=== PATIENT | male | born 1955 | race Hispanic/Latino ===

== ENCOUNTER 2023-03-11 12:43 | Observation (INO) | payer OTHER ==
--- OUTSIDE RECORDS SUMMARY | 2023-03-11 12:46 | XMS REPORT | Continuity of Care Document ---
:1955 Author Organization [facility] t Address [address] [facility] [address] [place] [address] Care Team Providers Name Role Phone BRADLEY RIVERA Primary Care Physician Unavailable JUDIE POSADAS Attending Clinician Unavailable Judie Posadas MD Attending Clinician Doctor Unassigned, [place] Attending Clinician Unavailable Payers Payer Name Policy Type Policy Number Effective Date Expiration Date S jerry TABOR PLS [id number] 2020 00:00:00 HMO Problems Condition Condition Condition Status Onset Resolution Last Treating Co mments Source Name Details Category Date Date Treatment Clinician Date Hyperlipid Hyperlipid Disease Active 2022-04 U nivers emia, emia, 0-24 ity [place] hyperlipid hyperlipid Br anch emia type emia type Primary Primary Disease Active 2022-04 Univers hypertensi hypertensi 0-24 it y of on on 00:00: [place] 00 Medical Branch PAD PAD Disease Active 2022-04 Univers (periphera (periphera 0-24 it y of l artery l artery 00:00: [place] disease) disease) 00 Medica l Branch Atrial Atrial Disease Active 2022-04 Univers flutter, flutter, 0-24 ity of unspecifie [place] d type 00 Medical [facility] Cigarette Cigarette Disease Active 2022-04 Uni vers smoker smoker 0-24 ity of 00:00: [place] 00 Medical Branch Mastoiditi Mastoiditi Disease Recurre Methodi s s nce 9-27 st 00:00: Hospita 00 l Left Left Disease Recurre Methodi chronic chronic nce 7-10 st serous serous 00:00: Hospita otitis otitis 00 l media media History of History of Disease Active M ethodi acute acute 4 st pancreatit pancreatit 00:00: Ho spita is is 00 l Abscess of Abscess of Disease Active M ethodi groin groin 07-23 st 00:00: Hospita 00 l Abnormal Abnormal Disease Active Metho di EKG EKG 11-21 st 00:00: Hospita 00 l Claudicati Claudicati Disease Active Overview : Methodi on in on in 10-[address] peripheral peripheral 00:00: g of this [facility] vascular vascular 00 note l disease disease might be different from the original. Added automatic ally from request for surgery [id number] Essential Essential Disease Active Met hodi hypertensi hypertensi 10-10 st on on 00:00: Hospita 00 l Tear of Tear of Diagnosis Active Commo n left left Spirit rotator rotator - [facility] cuff, cuff, St unspecifie unspecifie Lorena kes d tear d tear Medical extent extent Center Pain in Pain in Diagnosis Active Commo n joint of joint of Spirit left left - [facility] shoulder shoulder [facility] Adhesive Adhesive Diagnosis Active Com mon capsulitis capsulitis Sp xiomara of left of left - [facility] shoulder shoulder [facility] Allergies, Adverse Reactions, Alerts Allergy Allergy Status Severity Reaction(s) Onset Inactive Treating Comm ents Source Name Type Date Date Clinician NO KNOWN Drug Active Univers ALLERGIE Class ity of S [facility] Social History Social Habit Start Date Stop Date Quantity Comments Source Sexual orientation Method ist Hospital History of tobacco Passive smoker Un iversity of use [facility] Tobacco use and 2023-02-10 2023-02-10 Smokeless Universit y of exposure 00:00:00 00:00:00 tobacco non-user [facility] Alcohol intake 2019-01-17 2019-01-17 Current drinker [facility] 00:00:00 00:00:00 of alcohol Hospital (finding) History of Social 2018-12-08 2018-12-[address] function 00:00:00 00:00:00 Hospital Cigarettes smoked 2017-07-23 2017-07-[address] current (pack per 00:00:00 00:00:00 Hospita l day) - Reported Tobacco Comment 2017-01-22 2017-01-22 1 cig/day [facility] Sex Assigned At [birth year] [facility] 00:[facility] Smoking Status Start Date Stop Date Source Tobacco smoking University [facility] xa consumption unknown Medical Bran Occasional tobacco smoker 2023-02[facility]10 [facility] 2017-07-23 00:00:00 2017-07-23 [facility] 00:[facility]:00 Medications Ordered Filled Start Stop Current Ordering Indication Dosage Frequency Signature Comments Components Source Medication Medication Date Date Medication? Clinician (SIG) Name Name lisinopriL 2022-04 Yes 20mg Take 1 Unive rs 20 mg 0-24 tablet by ity of tablet 14:44: mouth in [place] [address] the Medical morning. Branch metoprolol 2022-04 Yes 50mg Take 1 Unive rs succinate 0-24 tablet by ity o f XL 50 mg 24 14:44: [place] 31 the Medical morning. Branch glimepiride 2022-04 Yes 1mg Take 1 Univ ers 1 mg tablet 0-24 tablet by ity of 14:44: mouth [place] [address] daily with Medical breakfast. Branch metFORMIN 2022-04 Yes 500mg Take 1 Unive rs 500 mg 0-24 tablet by ity of tablet 14:44: mouth in [place] [address] the Medical morning Branch and 1 tablet in the evening. Take with meals. 1x day if not ate pantoprazol 2022-04 Yes 40mg Take 1 Univ ers e 40 mg EC 0-24 tablet by ity of tablet 14:44: mouth in [place] [address] the Medical morning. Branch gemfibroziL 2022-04 Yes 600mg Take 1 Uni vers 600 mg 0-24 tablet by ity of tablet 14:44: mouth in [place] [address] the Medical morning. Branch lisinopriL 2022-04 Yes 20mg Take 1 Unive rs 20 mg 0-24 tablet by ity of tablet 14:44: mouth in [place] [address] the Medical morning. Branch metoprolol 2022-04 Yes 50mg Take 1 Unive rs succinate 0-24 tablet by ity o f XL 50 mg 24 [place] the Medical morning. Branch glimepiride 2022-04 Yes 1mg Take 1 Univ ers 1 mg tablet 0-24 tablet by ity of 14:44: mouth [place] [address] daily with Medical breakfast. Branch metFORMIN 2022-04 Yes 500mg Take 1 Unive rs 500 mg 0-24 tablet by ity of tablet 14:44: mouth in [place] [address] the Medical morning Branch and 1 tablet in the evening. Take with meals. 1x day if not ate pantoprazol 2022-04 Yes 40mg Take 1 Univ ers e 40 mg EC 0-24 tablet by ity of tablet 14:44: mouth in [place] [address] the Medical morning. Branch gemfibroziL 2022-04 Yes 600mg Take 1 Uni vers 600 mg 0-24 tablet by ity of tablet 14:44: mouth in [place] [address] the Medical morning. Branch lisinopriL 2022-04 Yes 20mg Take 1 Unive rs 20 mg 0-24 tablet by ity of tablet 14:44: mouth in [place] [address] the Medical morning. Branch metoprolol 2022-04 Yes 50mg Take 1 Unive rs succinate 0-24 tablet by ity o f XL 50 mg 24 [place] the Medical morning. Branch glimepiride 2022-04 Yes 1mg Take 1 Univ ers 1 mg tablet 0-24 tablet by ity of 14:44: mouth [place] [address] daily with Medical breakfast. Branch metFORMIN 2022-04 Yes 500mg Take 1 Unive rs 500 mg 0-24 tablet by ity of tablet 14:44: mouth in [place] [address] the Medical morning Branch and 1 tablet in the evening. Take with meals. 1x day if not ate pantoprazol 2022-04 Yes 40mg Take 1 Univ ers e 40 mg EC 0-24 tablet by ity of tablet 14:44: mouth in [place] [address] the Medical morning. Branch gemfibroziL 2022-04 Yes 600mg Take 1 Uni vers 600 mg 0-24 tablet by ity of tablet 14:44: mouth in [place] [address] the Medical morning. Branch gemfibrozil 2019-0 Yes 600mg Q.5D Take 600 M ethodi (LOPID) 600 9-[address] MG tablet 13:58: mouth 2 Hospi ta 29 (two) l times a day. gabapentin 2019 Yes 300mg Q.5D Take 300 Me thodi (NEURONTIN) 9-[address] 300 mg 13:58: mouth 2 Hospita capsule 29 (two) l times a day. metFORMIN 20170 Yes 500mg Q.5D Take 500 Met hodi (GLUCOPHAGE 6-[address] ) 500 mg 00:00: mouth 2 Hospit a tablet 00 (two) l times a day. metoprolol 2017 Yes 50mg QD Take 50 mg M ethodi succinate 6-[address] XL 00:00: daily. Hospita (TOPROL-XL) 00 l 50 mg 24 hr tablet glimepiride Yes 2mg Q.5D Take 2 mg M ethodi (AMARYL) 2 6-[address] MG tablet 00:00: (two) Hospita 00 times a l day. lisinopril Yes 20mg QD Take 20 mg M ethodi (PRINIVIL,Z 6-[address] ESTRIL) 20 00:00: daily. Hospi ta mg tablet 00 l Aspir-81 Aspir-81 Yes Kevyn 1 tablet Common Br[place]ley [facility] Metformin Metformin Yes Kevyn TK 1 T PO Common HCl HCl [place] BID [facility] Glimepiride Glimepiride Yes Kevyn TK 1 T PO Common [place] BID [facility] Metoprolol Metoprolol Yes Kevyn TK 1 T PO Common Succinate Succinate Br[place]ley ONCE D Spi rit ER ER QAM. [facility] Gabapentin Gabapentin Yes Kevyn 1 tablet Common [place] [facility] Lisinopril Lisinopril Yes Kevyn TK 1 T PO Common [place] ONCE D. [facility] Gemfibrozil Gemfibrozil Yes Kevyn TK 1 T PO Common [place] BID [facility] Immunizations Ordered Immunization Filled Immunization Date Status Commen ts Source Name Name Influenza High Dose Unknown Completed Unive [facility] Influenza High Dose Unknown Completed Unive [facility] Influenza High [facility]ose Unknown [facility] Vital Signs Vital Name Observation Time Observation Value Comments Source Systolic blood 2023-02-10 19:33:00 127 mm[Hg] Univer sity of pressure [facility] Diastolic blood 2023-02-10 19:33:00 68 mm[Hg] Unive rsity of pressure [facility] Heart rate 2023-02-10 19:33:00 68 /min [facility] Respiratory rate 2023-02-10 19:33:00 19 /min Univ ersity of [facility] Body height 2023-02-10 19:33:00 182.9 cm [facility] Body weight 2023-02-10 19:33:00 90.084 kg [facility] BMI 2023-02-10 19:33:00 26.94 kg/m2 [facility] Oxygen saturation in 2023-02-10 19:33:00 99 /min [facility] Arterial blood by [facility] Pulse oximetry Branch Procedures Procedure Date / Time Performed Performing Clinician [facility] e ASSIGNMENT OF BENEFITS 2023-02-10 18:47:03 Doctor Unassigned, No [facility] Plan of Care Planned Activity Planned Date Details Comments Source Future Scheduled 2023-02-13 Screening for [facility] Test 11:08:20 malignant neoplasm of colon (procedure) [code = 157054482] Future Scheduled 2023-02-13 Screening for [facility] Test 11:08:20 malignant neoplasm of colon (procedure) [code = 879313886] Future Scheduled 2023-02-13 Screening for [facility] Test 11:08:20 malignant neoplasm of colon (procedure) [code = 762574619] Future Scheduled 2023-02-13 COVID-19 VACCINE (#1) [facility] Test 11:08:20 [code = COVID-19 VACCINE (#1)] Future Scheduled 2023-02-13 Screening for [facility] Test 11:08:20 malignant neoplasm of colon (procedure) [code = 534915619] Future Scheduled 2023-02-13 Screening for [facility] Test 11:08:20 malignant neoplasm of colon (procedure) [code = 166466939] Future Scheduled 2023-02-13 SHINGLES VACCINES ([facility] 11:08:20 of 2) [code = SHINGLES VACCINES (1 of 2)] Future Scheduled 2023-02-13 65+ PNEUMOCOCCAL [facility] Test 11:08:20 VACCINE (1 - PCV) [code = 65+ PNEUMOCOCCAL VACCINE (1 - PCV)] Future Scheduled 2023-02-13 INFLUENZA VACCINE (#1) [facility] Test 11:08:20 [code = INFLUENZA VACCINE (#1)] Encounters Start End Encounter Admission Attending Care Care Encounter Source Date/Time Date/Time Type Type Clinicians Facility Department ID 2023-03-19 2023-03-19 Outpatient R CUAUHTEMOC, [facility] [id number] Univers 08:00:00 08:00:00 JUDIE paez o [facility] 2023-03-05 2023-03-05 Outpatient R CUAUHTEMOC, [facility] [id number] Univers 08:00:00 08:00:00 JUDIE marquez [facility] 2023-03-02 2023-03-02 Outpatient R CUAUHTEMOC, [facility] [id number] Univers 08:00:00 08:00:00 JUDIE marquez [facility] 2023-02-23 2023-02-23 Outpatient R CUAUHTEMOC, [facility] [id number] Univers 08:30:00 08:30:00 JUDIE marquez [facility] 2023-02-23 2023-02-23 Telephone [facility] [id number] Univers 00:00:00 00:00:00 Hussainjarod VALENZUELATONYA [id number] [facility] [id number] [id number] In dical NAL [address] [place] [address] 2023-02-10 2023-02-10 Office [facility] [id number] Univers 14:40:00 15:02:52 Visit Hussainjarod CARL [id number] [facility] [id number] [id number] In dical NAL [address] [place] [address] 2023-02-10 2023-02-10 Outpatient R CUAUHTEMOC, [facility] [id number] Univers 14:40:00 15:02:52 JUDIE litobrandi marquez [facility] 2023-02-10 2023-02-10 Orders Doctor NEWBY [id number] Univers 00:00:00 00:00:00 Only Unassigned, SHANI [id number] ity of [place] [facility] [id number] Bishnu as [id number] [place] [id number] Branch 2018-04-27 2018-04-27 Outpatient Sunday Brandt [id number] Common 13:30:00 13:30:00 [facility] 2018-01-11 2018-01-11 Out[facility] [id number] Common 16:18:00 16:18:00 t [facility] 2018-01-11 2018-01-11 Outpatient [facility] [id number] Common 15:00:00 15:00:00 t [facility] 2017-12-28 2017-12-28 Outpatient [facility] [id number] Common 22:23:00 22:23:00 t [facility] 2017-12-22 2017-12-22 Outpatient [facility] [id number] Common 14:59:00 14:59:00 t [facility] 2017-12-17 2017-12-17 Outpatient [facility] [id number] Common 15:00:00 15:00:00 t [facility] Results This patient has no known results.
--- NOTE | 2023-03-11 13:18 | RAD REPORT ---
EXAM DESCRIPTION: CT - Ct Stroke Brain Wo Cont - 03/11/2023 1:07 pm CLINICAL HISTORY: Slurred speech COMPARISON: none TECHNIQUE: Computed axial tomography of the head was obtained. All CT scans are performed using dose optimization technique as appropriate and may include automated exposure control or mA/KV adjustment according to patient size. FINDINGS: An intracranial bleed is not seen . The ventricles are normal in caliber. No extra-axial fluid collection is noted. Small low-density effusion along the right cerebral convexity Fluid within the sinuses/ mastoids is not seen. IMPRESSION: No acute intracranial abnormality is seen. If patient's symptoms persist MRI of the bra in would be recommended Small chronic effusion along the right cerebral convexity Dr Aceves of the emergency room was notified at 1:13 p.m. March 11, 2023
[2023-03-11 13:19] LABS: Absolute Lymphocytes (CBC) 1.4 K/uL (0.7-4.9); Hematocrit 43.7 % (39.6-49.0); MCV 97.4 fL (80-100); MPV 7.7 fL (7.6-11.3); Platelets 167 thou/uL (152-406); RBC Red Blood Cell Count 4.49 M/uL (4.33-5.43)
[2023-03-11 13:25] LABS: Protime INR 1.08
--- NOTE | 2023-03-11 13:35 | RAD REPORT ---
EXAM DESCRIPTION: CTHead angio03/11/2023 1:16 pm CLINICAL HISTORY: Slurred speech COMPARISON: None TECHNIQUE: 100 cc Isovue [address] angiogram of the head was obtained. 3D MIPS reconstruction performed. All CT scans are performed using dose optimization technique as appropriate and may include automated exposure control or mA/KV adjustment according to patient size. FINDINGS: The basilar, anterior cerebral, middle cerebral and posterior cerebral arteries do not dem onstrate a significant abnormality origin posterior cerebral arteries Mild calcified plaque distal internal carotid arteries An aneurysm is not seen A significant stenosis is not noted. No large vessel occlusion IMPRESSION: No significant abnormality is displayed
--- NOTE | 2023-03-11 13:35 | RAD REPORT ---
EXAM DESCRIPTION: Cristobal Angio03/11/2023 1:16 pm CLINICAL HISTORY: Slurred speech COMPARISON: None TECHNIQUE: 100 cc Isovue [address] angiogram of the neck was obtained. 3D MIPS reconstruction performed. All CT scans are performed using dose optimization technique as appropriate and may include automated exposure control or mA/KV adjustment according to patient size. 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 Vertebral arteries unremarkable No dissection is seen. No high-grade stenosis Dolichoectasia of vertebrobasilar artery IMPRESSION: Mild plaque within the carotid and vertebral arteries [place] crieria Mild stenosis 0 to 49 % Moderate stenosis 50-69% Severe stenosis 70-99%
[2023-03-11 13:41] LABS: Magnesium 1.5 mg/dL (1.6-2.4); Potassium 4.5 mEq/L (3.5-5.1); Troponin High Sensitivity 20.1 pg/mL (<58.9)
[2023-03-11] MEDS ORDERED: NA CHLORIDE 0.9% 500 ML ONE (14:08)
[2023-03-11] MEDS ORDERED: MAGNESIUM SULFATE 1 gm IVPB 1 GM/100 ML BAG IV ONE (14:08)
--- NOTE | 2023-03-11 14:14 | RAD REPORT ---
EXAM DESCRIPTION: Brigitte Single View03/11/2023 2:00 pm CLINICAL HISTORY: Hypertension/slurred speech COMPARISON: January 2023 FINDINGS: The lungs appear clear of acute infiltrate. The heart is normal size IMPRESSION: No acute abnormalities displayed
--- NOTE | 2023-03-11 14:35 | ER ---
Nurse's Notes [facility] Name: Too Forrest Age: 67 yrs Sex: Male : 1955 Arrival Date: 03/11/2023 Time: 12:43 Bed 16 Private MD: Diagnosis: Slurred speech;Syncope Presentation: 03/11 12:55 Chief complaint: Patient states: has had slurred speech X 2 days, having issues with iw his blood sugar and blood pressure , states he has fallen multiple times over past 10 days. Coronavirus screen: At this time, the client does not indicate any symptoms associated with coronavirus-19. Ebola Screen: Patient negative for fever greater than or equal to 101.5 degrees Fahrenheit, and additional compatible Ebola Virus Disease symptoms Patient denies exposure to infectious person. Patient denies travel to an Ebola-affected area in the 21 days before illness onset. No symptoms or risks identified at this time. Initial Sepsis Screen: Does the patient meet any 2 criteria? No. Patient's initial sepsis screen is negative. Does the patient have a suspected source of infection? No. Patient's initial sepsis screen is negative. Risk Assessment: Do you want to hurt yourself or someone else? Patient reports no desire to harm self or others. Onset of symptoms was March 09, 2023. 12:55 Method Of Arrival: Wheelchair iw 12:55 Acuity: JARRETT 3 iw 17:22 No acute neurological deficit is noted. Pre-hospital glucose is not applicable to this ko1 patient. Triage Assessment: 17:22 The onset of the patients symptoms was more than six hours ago. General: Appears in no ko1 apparent distress. Behavior is cooperative, appropriate for age, anxious. 17:22 The onset of the patients symptoms was March 09, 2023 at 12:00. ko1 Stroke Activation: Symptom onset > 6 hours Physician: Stroke Attending; Name: ; Notified At: ; Arrived At: Physician: Chief Stroke Resident; Name: ; Notified At: ; Arrived At: Physician: Stroke Resident; Name: ; Notified At: ; Arrived At: Physician: ED Attending; Name: ; Notified At: ; Arrived At: Physician: ED Resident; Name: ; Notified At: ; Arrived At: Historical: - Allergies: 12:57 No Known Allergies; iw - Home Meds: 12:57 gemfibrozil 600 mg Oral tablet 2 times per day [Active]; glimepiride 1 mg Oral tablet 2 iw times per day for Type 2 Diabetes Mellitus [Active]; lisinopril 20 mg Oral tablet once for Hypertension [Active]; metformin 500 mg Oral Tablet 1 tab 2 times per day for Type 2 Diabetes Mellitus [Active]; pantoprazole 40 mg Oral tablet once [Active]; metoprolol tartrate 50 mg Oral tablet daily [Active]; - PMHx: 12:57 diabetes mellitus; Hypertensive disorder; iw - Immunization history:: Adult Immunizations unknown. - Family history:: not pertinent. - Social history:: Smoking status: Patient denies any tobacco usage or history of. - Hospitalizations: : No recent hospitalization is reported. Screenin:09 [place] Swallow Protocol 3 oz Water Swallow Challenge: Pt able to drink all water without cm10 stopping, coughing, choking or throat clearing: Yes Result: PASS. 15:30 [facility] ED Fall Risk Assessment (Adult) History of falling in the last 3 months, ko1 including since admission Yes- fall prone (multiple falls) (3 pts) Confusion or Disorientation Yes (5 pts) Intoxicated or Sedated No (0 pts) Impaired Gait No (0 pts) Mobility Assist Device Used No (0 pt) Altered Elimination No (0 pt) Score/Fall Risk Level 3 or more points = High Risk Oriented to surroundings, Maintained a safe environment, Educated pt \T\ family on fall prevention, incl call for assistance when getting out of bed, Assessed \T\ reinforced patient's understanding of fall precautions, Provided non-skid footwear, Hourly rounding (assess needs \T\ fall precautionary measures) done, Used ambulatory aids as needed (educated on \T\ assisted with), Used gait belt as appropriate Implemented a Fall Risk Plan of Care, Apply high fall risk patient identification: yellow non skid footwear/ fall signage, Placed fall mat w/ non beveled edge next to bed, Activated bed/chair alarm, Remained w/in arm's length of patient and in sight while toileting, Offered frequent toileting (1:1 observation), Remained with patient while ambulating, Utilized family, sitter, or virtual forging press operator as indicated. Abuse screen: Denies threats or abuse. Denies injuries from another. Nutritional screening: No deficits noted. Tuberculosis screening: No symptoms or risk factors identified. Assessment: 13:00 VAN Scoring: Arm Drift: Patients demonstrates NO arm weakness. Patient is VAN Negative. ko1 Visual Disturbance: No visual disturbance noted. Aphasia: No aphasia noted. Neglect: No neglect noted. TNKase (Tenecteplase) Screening: Indications: Contraindications: Patient reports onset of signs and symptoms of stroke greater than 6 hours ago: Yes. Pain: Denies pain. Neuro: Reports confusion and slurred speech. Vital Signs: 12:55 BP 157 / 81; Pulse 59; Resp 16; Temp 98.4; Pulse Ox 100% on R/A; Weight 87.54 kg; iw Height 6 ft. 0 in. ; 14:00 BP 133 / 68; Pulse 119; Resp 16; Pulse Ox 99% ; ko1 14:15 BP 149 / 83; Pulse 103; Resp 16; Pulse Ox 99% ; ko1 15:15 BP 133 / 74; Pulse 96; Resp 18; Pulse Ox 100% ; ko1 15:30 BP 136 / 78; Pulse 106; Resp 16; Pulse Ox 99% ; ko1 17:19 BP 135 / 86; Pulse 70; Resp 16; Pulse Ox 99% ; ko1 12:55 Body Mass Index 26.18 (87.54 kg, 182.88 cm) iw NIH Stroke Scale Scores: 13:00 NIHSS Score: 1 ko1 ED Course: 12:44 Patient arrived in ED. mr 12:48 Alejandro Aceves MD is Attending Physician. rn 12:57 Triage completed. iw 12:58 Arm band placed on. iw 12:59 Halley Wright, JUANPABLO is Primary Nurse. ko1 13:00 Client placed on continuous cardiac and pulse oximetry monitoring. NIBP monitoring ko1 applied. nuclear monitoring technician on. Door closed. Noise minimized. Lights dimmed. Warm blanket given. 13:00 Inserted saline lock: 20 gauge in right antecubital area, using aseptic technique. ko1 Blood collected. 13:09 CT Stroke Brain w/o Contrast In Process Unspecified. EDMS 13:18 CT Head Angio In Process Unspecified. EDMS 13:18 CT Neck Angio In Process Unspecified. EDMS 14:02 Stroke CXR 1 View In Process Unspecified. EDMS 14:34 Alejandro Aceves MD is Hospitalizing Provider. rn 15:01 MRI - Brain Wo Cont In Process Unspecified. EDMS 15:30 Patient has correct armband on for positive identification. Bed in low position. Call ko1 light in reach. Side rails up X2. 16:53 Urine Sodium Random Sent. ko1 16:53 UDS Sent. ko1 16:53 Urine Osmolality Sent. ko1 17:19 Provided Education on: na. ko1 17:19 No provider procedures requiring assistance completed. Patient admitted, IV remains in ko1 place. Administered Medications: 14:08 Drug: Magnesium Sulfate IVPB 1 grams IVPB once over 1 hrs Route: IVPB; Infused Over: 1 cm10 hrs; Site: right antecubital; 14:09 Drug: NS 0.9% IV 500 ml IV at bolus once Route: IV; Rate: bolus; Site: right cm10 antecubital; Medication: 15:30 VIS not applicable for this client. ko1 Point of Care Testing: Blood Glucose: 13:30 Blood Glucose: 190 mg/dL; ko1 Ranges: Outcome: 14:34 Decision to Hospitalize by Provider. rn 17:19 Admitted to Tele accompanied by tech, via wheelchair, room 228, with chart, ko 17:19 Condition: stable 17:19 Instructed on the need for admit, 18:04 Patient left the ED. ko1 NIH Stroke Scale - NIH Stroke Score Date: 03/11/2023 Time: 13:00 Total Score = 1 10. Dysarthria (speech clarity - read or repeat words) - 1(Mild to Moderate) 11. Extinction and Inattention (visual/tactile/auditory/spatial/personal) - 0(No abnormality) 1a. Level of Consciousness (LOC) - 0(Alert) 1b. Level of Consciousness (LOC) (Month \T\ Age) - 0(Both) 1c. LOC Commands (Open \T\ Closes Eyes/Locomotive Engineer Diesel) - 0(Both) 2. Best Gaze (Lateral Gaze Paresis) - 0(Normal) 3. Visual Field Loss - 0(No visual loss) 4. Facial Palsy - 0(Normal) 5a. Left Arm: Motor (10-second hold) - 0(No drift) 5b. Right Arm: Motor (10-second hold) - 0(No drift) 6a. Left Leg: Motor (5-second hold - always test supine) - 0(No drift) 6b. Right Leg: Motor (5-second hold - always test supine) - 0(No drift) 7. Limb Ataxia (finger/nose \T\ heel/nolasco - test with eyes open) - 0(Absent) 8. Sensory Loss (pinprick arms/legs/face) - 0(Normal) 9. Best Language: Aphasia (description/naming/reading) - 0(No aphasia) Initials: ko1 Signatures: Dispatcher [employer] EDLizet Pablo, Reg Reg mr Tianna Ruiz, RN JUANPABLO iw Alejandro Aceves MD MD rn Oliver, Kathy, RN RN ko1 Shona Smith RN RN cm10 Corrections: (The following items were deleted from the chart) 14:10 14:09 [place] Swallow Protocol 3 oz Water Swallow Challenge: Pt able to drink all cm10 water without stopping, coughing, choking or throat clearing: No Result: PASS cm10
--- NOTE | 2023-03-11 14:35 | EDPHYS ---
Physician Documentation [facility] Name: Too Forrest Age: 67 yrs Sex: Male : 1955 Arrival Date: 03/11/2023 Time: 12:43 Bed 16 Private MD: ED Physician Alejandro Aceves HPI: 03/11 12:56 This 67 yrs old Male presents to ER via Unassigned with complaints of Low rn blood sugar,confusion, Slurred Speech. 12:56 The patient presents to the emergency department with a speech or higher order brain rn function problem. Onset: The symptoms/episode began/occurred last night. Associated signs and symptoms: Pertinent negatives: altered mental status, fever, seizure, syncope, double vision, visual field changes, loss of vision. Severity of symptoms: At their worst the symptoms were moderate in the emergency department the symptoms are unchanged. The patient has experienced similar episodes in the past. Patient reports slurred speech since last night. Has had this happen before in the setting of low blood sugar. Tried glucose tablets and did not help. Slurred speech is worse today. Also reports 3 syncopal episodes in the last week with posterior head trauma. No chest pain or shortness of breath. No blood in stool. No vomiting. No fever or recent illness. Denies any focal weakness or numbness.. Historical: - Allergies: 12:57 No Known Allergies; iw - Home Meds: 12:57 gemfibrozil 600 mg Oral tablet 2 times per day [Active]; glimepiride 1 mg Oral tablet 2 iw times per day for Type 2 Diabetes Mellitus [Active]; lisinopril 20 mg Oral tablet once for Hypertension [Active]; metformin 500 mg Oral Tablet 1 tab 2 times per day for Type 2 Diabetes Mellitus [Active]; pantoprazole 40 mg Oral tablet once [Active]; metoprolol tartrate 50 mg Oral tablet daily [Active]; - PMHx: 12:57 diabetes mellitus; Hypertensive disorder; iw - Immunization history:: Adult Immunizations unknown. - Family history:: not pertinent. - Social history:: Smoking status: Patient denies any tobacco usage or history of. - Hospitalizations: : No recent hospitalization is reported. ROS: 12:56 Constitutional: Negative for fever, chills, and weight loss, Eyes: Negative for injury, rn pain, redness, and discharge, Neck: Negative for injury, pain, and swelling, Cardiovascular: Negative for chest pain, palpitations, and edema, Respiratory: Negative for shortness of breath, cough, wheezing, and pleuritic chest pain, Abdomen/GI: Negative for abdominal pain, nausea, vomiting, diarrhea, and constipation, Back: Negative for injury and pain, MS/Extremity: Negative for injury and deformity, Skin: Negative for injury, rash, and discoloration, Neuro: Positive for slurred speech Exam: 12:56 Constitutional: This is a well developed, well nourished patient who is awake, alert, rn and in no acute distress. Head/Face: Normocephalic, atraumatic. Cardiovascular: Regular rate and rhythm. No pulse deficits. Respiratory: No increased work of breathing, no retractions or nasal flaring. Abdomen/GI: Soft, non-tender MS/ Extremity: Pulses equal, no cyanosis. Neurovascular intact. Full, normal range of motion. Equal circumference. Neuro: Awake and alert, GCS 15, oriented to person, place, time, and situation. Cranial nerves II-XII grossly intact. Motor strength 5/5 in all extremities. Sensory grossly intact. Cerebellar exam normal. Mild slurred speech present but all words are understood and correct usage 15:54 ECG was reviewed by the Attending Physician. rn Vital Signs: 12:55 BP 157 / 81; Pulse 59; Resp 16; Temp 98.4; Pulse Ox 100% on R/A; Weight 87.54 kg; iw Height 6 ft. 0 in. ; 14:00 BP 133 / 68; Pulse 119; Resp 16; Pulse Ox 99% ; ko1 14:15 BP 149 / 83; Pulse 103; Resp 16; Pulse Ox 99% ; ko1 15:15 BP 133 / 74; Pulse 96; Resp 18; Pulse Ox 100% ; ko1 15:30 BP 136 / 78; Pulse 106; Resp 16; Pulse Ox 99% ; ko1 17:19 BP 135 / 86; Pulse 70; Resp 16; Pulse Ox 99% ; ko1 12:55 Body Mass Index 26.18 (87.54 kg, 182.88 cm) iw NIH Stroke Scale Scores: 13:00 NIHSS Score: 1 ko1 MDM: 12:48 Patient medically screened. rn 13:01 ED course: Glucose 122 here and still slurring, will rule out CVA. Onset was last night rn and states never completely went away, worse today, so if CVA, patient is outside window for TNKase. 13:28 ED course: No acute findings on CT head without contrast per Dr. Rodriguez. rn 14:32 Data reviewed: vital signs, nurses notes, lab test result(s), radiologic studies, CT rn scan, and as a result, I will admit patient. Consideration of Admission/Observation Patient was admitted/placed on observation. Escalation of care including admission/observation considered. Management of patient was discussed with the following: Hospitalist: Will admit for further evaluation. Care significantly affected by the following chronic conditions: Diabetes, Hypertension. Counseling: I had a detailed discussion with the patient and/or guardian regarding the historical points, exam findings, and any diagnostic results supporting the discharge/admit diagnosis, lab results, radiology results, the need for further work-up and treatment in the hospital. ED course: Patient with negative CT head/CTA, normal glucose and still has slurred speech that is worsening since last night. As mentioned before, patient is outside of TNKase window if this is a CVA. Will admit to hospital service for further workup. 03/11 12:55 Order name: Basic Metabolic Panel; Complete Time: 13:47 rn 03/11 12:55 Order name: CBC with Diff; Complete Time: 13:47 rn 03/11 12:55 Order name: High Sensitivity Troponin; Complete Time: 13:47 rn 03/11 12:55 Order name: Magnesium; Complete Time: 13:47 rn 03/11 12:55 Order name: Protime (+inr); Complete Time: 13:47 rn 03/11 12:55 Order name: Ptt, Activated; Complete Time: 13:47 rn 03/11 13:00 Order name: Glucose, Ancillary Testing; Complete Time: 13:47 EDMS 03/11 13:31 Order name: CREATININE WHOLE BLOOD; Complete Time: 13:47 EDMS 03/11 16:20 Order name: Phosphorus la1 03/11 16:20 Order name: Osmolality, Serum la1 03/11 16:20 Order name: Urine Osmolality la1 03/11 16:20 Order name: Urine Sodium Random la1 03/11 16:20 Order name: UDS la1 03/11 12:55 Order name: CT Head Angio; Complete Time: 13:47 rn 03/11 12:55 Order name: CT Neck Angio; Complete Time: 13:47 rn 03/11 12:55 Order name: CT Stroke Brain w/o Contrast; Complete Time: 13:47 rn 03/11 12:55 Order name: Stroke CXR 1 View; Complete Time: 14:46 rn 03/11 12:55 Order name: MRI - Brain Wo Cont; Complete Time: 15:28 rn 03/11 12:55 Order name: EKG; Complete Time: 12:56 rn 03/11 12:55 Order name: Accucheck; Complete Time: 15:29 rn 03/11 12:55 Order name: Cardiac monitoring; Complete Time: 13:33 rn 03/11 12:55 Order name: EKG - Nurse/Tech; Complete Time: 14:09 rn 03/11 12:55 Order name: IV Saline Lock; Complete Time: 13:34 rn 03/11 12:55 Order name: Labs collected and sent; Complete Time: 13:34 rn 03/11 12:55 Order name: NPO; Complete Time: 13:34 rn 03/11 12:55 Order name: O2 Per Protocol; Complete Time: 13:34 rn 03/11 12:55 Order name: O2 Sat Monitoring; Complete Time: 13:34 rn 03/11 12:55 Order name: Stroke Swallow Screen; Complete Time: 14:09 rn EC:54 Rate is 114 beats/min. Rhythm is regular. Left axis deviation noted. QRS is positive in rn lead I and negative in lead aVF. MO interval is normal. QRS interval is normal. T waves are Normal. No ST changes noted. Clinical impression: Sinus tachycardia and PVCs. Interpreted by me. Reviewed by me. Administered Medications: 14:08 Drug: Magnesium Sulfate IVPB 1 grams IVPB once over 1 hrs Route: IVPB; Infused Over: 1 cm10 hrs; Site: right antecubital; 14:09 Drug: NS 0.9% IV 500 ml IV at bolus once Route: IV; Rate: bolus; Site: right cm10 antecubital; Point of Care Testing: Blood Glucose: 13:30 Blood Glucose: 190 mg/dL; ko1 Ranges: Critical Glucose Levels:Adult <50 mg/dl or >400 mg/dl <40 mg/dl or >180 mg/dl Disposition Summary: 03/11/23 14:34 Hospitalization Ordered Notes: Hospitalization Status: Observation rn Provider: Alejandro Aceves rn Location: Telemetry/MedSurg (observation) rn Condition: Stable rn Problem: new rn Symptoms: are unchanged rn Bed/Room Type: Standard rn Room Assignment: 228(03/11/23 16:28) bd Diagnosis - Slurred speech rn - Syncope rn Forms: - Medication Reconciliation Form rn - SBAR form rn - Leadership Thank You Letter rn NIH Stroke Scale - NIH Stroke Score Date: 03/11/2023 Time: 13:00 Total Score = 1 10. Dysarthria (speech clarity - read or repeat words) - 1(Mild to Moderate) 11. Extinction and Inattention (visual/tactile/auditory/spatial/personal) - 0(No abnormality) 1a. Level of Consciousness (LOC) - 0(Alert) 1b. Level of Consciousness (LOC) (Month \T\ Age) - 0(Both) 1c. LOC Commands (Open \T\ Closes Eyes/Restaurant Assistant) - 0(Both) 2. Best Gaze (Lateral Gaze Paresis) - 0(Normal) 3. Visual Field Loss - 0(No visual loss) 4. Facial Palsy - 0(Normal) 5a. Left Arm: Motor (10-second hold) - 0(No drift) 5b. Right Arm: Motor (10-second hold) - 0(No drift) 6a. Left Leg: Motor (5-second hold - always test supine) - 0(No drift) 6b. Right Leg: Motor (5-second hold - always test supine) - 0(No drift) 7. Limb Ataxia (finger/nose \T\ heel/nolasco - test with eyes open) - 0(Absent) 8. Sensory Loss (pinprick arms/legs/face) - 0(Normal) 9. Best Language: Aphasia (description/naming/reading) - 0(No aphasia) Initials: ko1 Signatures: Dispatcher [employer] EDMS Mary Blount Irene RN Alejandro Ramirez MD MD rn Attema, Lee, AUTOMATIC OVEN OPERATOR-C AUTOMATIC OVEN OPERATOR-Cla1 Halley Wright RN RN ko1 Shona Smith, RN RN cm10 Corrections: (The following items were deleted from the chart) 16:28 14:34 rn bd
--- NOTE | 2023-03-11 15:27 | RAD REPORT ---
EXAM DESCRIPTION: MRI - Brain Wo Cont - 03/11/2023 3:06 pm CLINICAL HISTORY: Slurred speech COMPARISON: Head CT March 11, 2023 TECHNIQUE: Axial, sagittal, and coronal magnetic resonance images of the brain were obtained. FINDINGS: Mild signal within periventricular, deep and subcortical white matter probably ischemic ch anges secondary to small vessel disease Diffusion-weighted/ADC mapping does not reveal evidence of acute infarction. The ventricles are normal caliber. Small fluid collection along the right cerebral convexity Postsurgical changes left mastoids with moderate amount of fluid IMPRESSION: No acute intracranial abnormality noted Small fluid collection along the right cerebral convexity could either be a chronic subdural effusion or normal CSF appearing prominent secondary to adjacent cerebral atrophy. It is not felt to be signi ficant Postsurgical changes left mastoids with moderate amount of fluid. This may indicate an acute mastoidi tis and should be correlated clinically
--- NOTE | 2023-03-11 16:38 | P.HP ---
Certification for Inpatient Patient admitted to: Observation With expected LOS: <2 Midnights Patient will require the following post-hospital care: None Practitioner: I am a practitioner with admitting privileges, knowledge of patient current condition, hospital course, and medical plan of care. Services: Services provided to patient in accordance with Admission requirements found in Title 42 Section 412.3 of the Code of Federal Regulations Patient History Date of Service: 03/11/23 Reason for admission: Dysarthria, unsteady gait History of Present Illness: 67-year-old male with history of [id number] diabetes, hypertension, hyperlipidemia and GERD presents to the emergency department chief complaint of slurred speech, frequent falls, focal to ambulation/unsteady gait. He reports episodes intermittent in nature since December, approximately 4-5 episodes lasting a day or 2 at a time with slurred speech and unsteady gait/falls. Initially he associated these episodes with low blood sugar although there has not been documented low blood sugars during any of these events. He was evaluated in the emergency department his labs were significant for mild hyponatremia with a sodium of 130 glucose 190 magnesium 1.5 white cell count 10.8 CT brain without contrast showed no acute intracranial abnormality CT angio head and neck were also performed which were negative for large vessel occlusion or significant carotid stenosis. MRI brain without contrast performed which revealed no acute intracranial abnormality, small fluid collection along the right cerebral convexity could either be a chronic subdural effusion or normal CSF appearing prominent secondary to adjacent cerebral atrophy. It is not felt to be significant. Post surgical changes left mastoids with moderate amount of fluid. This may indicate an acute mastoiditis and should be correlated clinically. ED provider wishes to admit under observation for dysarthria, unsteady gait/frequent falls Allergies No Known Allergies Allergy (Unverified 01/19/23 11:40) Home Medications: Apixaban [Eliquis] 5 mg PO BID 30 Days #60 01/20/23 Glimepiride 1 mg PO DAILY 01/20/23 Lisinopril [Zestril] 20 mg PO DAILY 01/20/23 Metformin HCl 500 mg PO BID 01/20/23 Metoprolol Tartrate [Lopressor*] 25 mg PO BID 6AM 6PM 30 Days #60 tab 01/20/23 Pantoprazole [Protonix Tab*] 40 mg PO DAILY 01/20/23 gemfibroziL [Gemfibrozil] 600 mg PO DAILY 01/20/23 - Past Medical/Surgical History -: Rxg-gvjutqr-sdilfbwal diabetes -: Atrial fibrillation -: Hypertension -: Hyperlipidemia -: GERD -: Left leg stent Psychosocial/ Personal History: Lives at home alone, 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 [employer] - Family History Family History: Reviewed- Non-Contributory - Social History Smoking Status: Never smoker Alcohol use: Yes CD- Drugs: No Caffeine use: Yes Place of Residence: Home Review of Systems 10-point ROS is otherwise unremarkable Neurological: Change in Speech, Other (Unsteady gait) Physical Examination - Physical Exam General: Alert, In no apparent distress, Oriented x3 HEENT: Atraumatic, PERRLA Neck: Supple Respiratory: Clear to auscultation bilaterally, Normal air movement Cardiovascular: Regular rate/rhythm, Normal S1 S2 Gastrointestinal: Normal bowel sounds, No tenderness Musculoskeletal: No tenderness Integumentary: No rashes Neurological: Normal strength at 5/5 x4 extr, Normal tone, Sensation intact, Cranial nerves 3-12 intact, Normal affect, Abnormal speech (Mild dysarthria) - Studies Laboratory Data (last 24 hrs) 03/11/23 03/11/23 03/11/23 13:08 13:08 13:08 WBC 10.80 Hgb 14.9 Hct 43.7 Plt Count 167 PT 11.9 INR 1.08 APTT 35.1 Sodium 130 L Potassium 4.5 BUN 17 Creatinine 1.19 Glucose 190 H Magnesium 1.5 L Assessment and Plan - Plan Assessment: Dysarthria, unsteady gait Mild hyponatremia Hypomagnesemia Atrial fibrillation Diabetes mellitus type [id number] with hyperglycemia Hypertension Hyperlipidemia GERD Plan: Dysarthria, unsteady gait MRI negative for findings of CVA CTA head and neck negative for large vessel occlusion or significant carotid stenosis Multiple episodes since December~ lasting 1 to 2 days each PT/speech therapy consults in place Mild hyponatremia Urine/blood studies ordered Continue gentle IV fluids overnight Recheck demonstrated morning Hypomagnesemia Replaced in ED, protocol in place Atrial fibrillation Was previously started on Eliquis, reports he developed a rash after starting the Eliquis and discontinued it States he takes a daily aspirin Rate controlled, monitor telemetry Diabetes mellitus type [id number] with hyperglycemia ACHS Accu-Chek, sliding scale insulin Hypertension Hyperlipidemia Continue home medications GERD Continue PPI DVT PPX: Lovenox Code status:Full - Advance Directives Does patient have a Living Will: No Does patient have a Durable POA for Healthcare: No Critical Care: No Time Spent Managing Pts Care (In Minutes): 55
[2023-03-11 17:06] LABS: Barbiturates NEGATIVE (NEGATIVE); Benzodiazepines NEGATIVE (NEGATIVE); Cocaine NEGATIVE (NEGATIVE); METHAMPHETAM NEGATIVE (NEGATIVE); Methadone ND (NEGATIVE); Opiates NEGATIVE (NEGATIVE); Phencyclidine NEGATIVE (NEGATIVE); THC Cannibis NEGATIVE (NEGATIVE)
[2023-03-11] MEDS ORDERED: ACETAMINOPHEN 500 MG TAB PO PRN (18:32)
[2023-03-11] MEDS ORDERED: ONDANSETRON 4 MG/2 ML VIAL IV PRN (18:32)
[2023-03-11] MEDS: INSULIN REGULAR (HUMAN) 100 UNIT/ML SQ SCH ×2 (18:32→22:26)
[2023-03-11 18:52] VITALS: O2SAT 99
[2023-03-11] MEDS: NA CHLORIDE 0.9% 1,000 ML IV SCH (22:28)
[2023-03-11] MEDS: ENOXAPARIN 40 MG/0.4 ML SQ SCH (22:29)
[2023-03-12 01:48] VITALS: BMI 24.8
[2023-03-12 02:35] LABS: Absolute Lymphocytes (CBC) 2.1 K/uL (0.7-4.9); Hematocrit 37.8 % (39.6-49.0); Lymphocytes % 31.1 % (15.3-44.8); MCV 97.5 fL (80-100); Platelets 153 thou/uL (152-406); RBC Red Blood Cell Count 3.88 M/uL (4.33-5.43)
[2023-03-12 03:23] LABS: Albumin 3.2 g/dL (3.4-5.0); Bilirubin Total 0.8 mg/dL (0.2-1.0); Magnesium 1.6 mg/dL (1.6-2.4); Phosphorus 2.4 mg/dL (2.5-4.9); Potassium 3.7 mEq/L (3.5-5.1); Protein, Total 6.5 g/dL (6.4-8.2); Thyroid Stimulating Hormone 2.31 uIU/mL (0.358-3.740)
[2023-03-12] MEDS: NA CHLORIDE 0.9% 1,000 ML IV SCH (04:25)
[2023-03-12] MEDS: INSULIN REGULAR (HUMAN) 100 UNIT/ML SQ SCH ×2 (07:30→11:30)
[2023-03-12] MEDS ORDERED: MAGNESIUM SULFATE 1 gm IVPB 1 GM/100 ML BAG IV ONE (08:00)
[2023-03-12] MEDS ORDERED: INFLUENZA VACCINE (for 6+ mo) 0.5 ML DOSE IMVAC ONE (08:00)
[2023-03-12] MEDS: POTASS/SODIUM PHOSPHATE 1 PKT POWD.PACK PO SCH (08:29)
[2023-03-12] MEDS: ENOXAPARIN 40 MG/0.4 ML SQ SCH (08:30)
[2023-03-12] MEDS ORDERED: POTASSIUM CL SA 10 MEQ TAB PO ONE (09:00)
--- NOTE | 2023-03-12 11:07 | P.PN ---
Date of Service: 03/12/23 Subjective: Feels like speech is improving-still slurred No other acute events overnight ROS: 10 point ROS as noted above, otherwise negative Physical exam GEN: Alert, oriented, NAD HEENT: Normal conjunctiva, sclera anicteric CV: Regular rate and rhythm, no edema Pulm: Nonlabored respirations on room air ABD: Soft, nontender, nondistended MSK: No joint tenderness Integumentary: No rashes Neuro: Slurred speech/dysarthria, normal affect strength 5 out of 5 in all extremities, finger-nose/[id number] normal-NIH 0 Vitals reviewed Problem List Dysarthria, unsteady gait Mild hyponatremia Hypomagnesemia Atrial fibrillation Diabetes mellitus type [id number] with hyperglycemia Hypertension Hyperlipidemia GERD Plan: Dysarthria, unsteady gait MRI negative for findings of CVA CTA head and neck negative for large vessel occlusion or significant carotid stenosis Multiple episodes since December~ lasting 1 to 2 days each PT/speech therapy consults in place-awaiting eval Consult with neurology Mild hyponatremia Sodium improved Urine/blood studies ordered Hypomagnesemia Improved, protocol in place Atrial fibrillation Was previously started on Eliquis, reports he developed a rash after starting the Eliquis and discontinued it States he takes a daily aspirin Rate controlled, monitor telemetry Diabetes mellitus type [id number]-[id number]-[id number] with hyperglycemia ACHS Accu-Chek, sliding scale insulin Hypertension Hyperlipidemia Continue home medications GERD Continue PPI DVT PPX: Lovenox Code status:Full Dispo: 24 to 48 hours neurology recommendations, PT eval Time Spent Managing Pts Care (In Minutes): 35
[2023-03-12] MEDS ORDERED: METOPROLOL XL 50 MG TAB PO ONE (11:08)
[2023-03-12 12:38] VITALS: BP 131/75; TEMP 97.3
[2023-03-12] MEDS ORDERED: levETIRAcetam 500 MG TAB PO ONE (14:05)
[2023-03-12] MEDS ORDERED: CLOPIDOGREL 75 MG TABLET PO ONE (14:05)
--- NOTE | 2023-03-12 14:07 | P.DS ---
Admission Date: 03/11/23 Discharge Date: 03/12/23 Disposition: ROUTINE DISCHARGE Discharge Condition: FAIR Reason for Admission: Dysarthria, unsteady gait Brief History of Present Illness: 67-year-old male with history of ytb-nuvniko-uvxtromto diabetes, hypertension, hyperlipidemia and GERD presents to the emergency department chief complaint of slurred speech, frequent falls, focal to ambulation/unsteady gait. He reports episodes intermittent in nature since December, approximately 4-5 episodes lasting a day or 2 at a time with slurred speech and unsteady gait/falls. Initially he associated these episodes with low blood sugar although there has not been documented low blood sugars during any of these events. He was evaluated in the emergency department his labs were significant for mild hyponatremia with a sodium of 130 glucose 190 magnesium 1.5 white cell count 10.8 CT brain without contrast showed no acute intracranial abnormality CT angio head and neck were also performed which were negative for large vessel occlusion or significant carotid stenosis. MRI brain without contrast performed which revealed no acute intracranial abnormality, small fluid collection along the right cerebral convexity could either be a chronic subdural effusion or normal CSF appearing prominent secondary to adjacent cerebral atrophy. It is not felt to be significant. Postsurgical changes left mastoids with moderate amount of fluid. This may indicate an acute mastoiditis and should be correlated clinically. ED provider wishes to admit under observation for dysarthria, unsteady gait/frequent falls Hospital Course: Patient was admitted to the hospital for for dysarthria, unsteady gait which he reports has been going on intermittently since December of this year with about 4-5 episodes lasting 1 to [address] head without contrast as well as CTA of the head and neck were negative for acute findings/large vessel occlusion or significant carotid stenosis. MRI of the brain without contrast performed which was negative for signs of CVA or other acute findings. Patient's dysarthria persisted, he was able to walk with physical therapy greater than 200 feet with use of walker, noted to have mildly unsteady gait without use of walker. accounting advisory services manager consult placed to help obtain walker for patient to use as needed. Discussed case with neurology who recommends initiation of aspirin, Plavix, statin as well as Keppra 250 mg daily for possible seizure disorder as well as outpatient follow-up in 1 week. New medications Keppra 250 mg by mouth daily Clopidogrel 75 mg by mouth daily Atorvastatin 40 mg by mouth daily Continue your other home medications Take precautions to avoid falls Vital Signs/Physical Exam: Temp Pulse Resp BP Pulse Ox 97.3 F 70 18 131/75 100 03/12/23 12:00 03/12/23 12:00 03/12/23 12:00 03/12/23 12:00 03/12/23 12:00 General: Alert, In no apparent distress, Oriented x3 HEENT: Atraumatic, PERRLA Neck: Supple, JVD not distended Respiratory: Clear to auscultation bilaterally, Normal air movement Cardiovascular: Regular rate/rhythm, Normal S1 S2 Gastrointestinal: Normal bowel sounds Musculoskeletal: No tenderness Integumentary: No rashes Neurological: Normal strength at 5/5 x4 extr, Normal tone, Sensation intact, Cranial nerves 3-12 intact, Abnormal speech (mild to moderate dysarthria) Laboratory Data at Discharge: WBC 6.80 thou/uL (4.3-10.9) 03/12/23 01:48 Hgb 12.6 g/dL (13.6-17.9) L D 03/12/23 01:48 Hct 37.8 % (39.6-49.0) L 03/12/23 01:48 Plt Count 153 thou/uL (152-406) 03/12/23 01:48 PT 11.9 SECONDS (9.5-12.5) 03/11/23 13:08 INR 1.08 03/11/23 13:08 APTT 35.1 SECONDS (24.3-36.9) 03/11/23 13:08 Sodium 135 mEq/L (136-145) L D 03/12/23 01:48 Potassium 3.7 mEq/L (3.5-5.1) D 03/12/23 01:48 BUN 14 mg/dL (7-18) 03/12/23 01:48 Creatinine 0.89 mg/dL (0.70-1.30) 03/12/23 01:48 Glucose 133 mg/dL (74-106) H 03/12/23 01:48 Phosphorus 2.4 mg/dL (2.5-4.9) L 03/12/23 01:48 Magnesium 1.6 mg/dL (1.6-2.4) 03/12/23 01:48 Total Bilirubin 0.8 mg/dL (0.2-1.0) 03/12/23 01:48 AST 15 U/L (15-37) 03/12/23 01:48 ALT 13 U/L (16-61) L 03/12/23 01:48 Alkaline Phosphatase 59 U/L (45-117) 03/12/23 01:48 Home Medications: Metformin HCl 500 mg PO BID 01/20/23 Pantoprazole [Protonix Tab*] 40 mg PO DAILY 01/20/23 gemfibroziL [Gemfibrozil] 600 mg PO BID 01/20/23 Glimepiride 1 mg PO BID 03/11/23 Lisinopril [Zestril] 20 mg PO DAILY 03/11/23 Metoprolol Succinate 50 mg PO DAILY 03/11/23 Aspirin [Aspirin EC] 81 mg PO DAILY #30 tab 03/12/23 Atorvastatin Calcium 40 mg PO DAILY #30 tab 03/12/23 Clopidogrel Bisulfate [Plavix] 75 mg PO DAILY #30 tab 03/12/23 Levetiracetam [Keppra] 250 mg PO DAILY #30 tab 03/12/23 New Medications: Aspirin [Aspirin EC] 81 mg PO DAILY #30 tab Atorvastatin Calcium 40 mg PO DAILY #30 tab Levetiracetam [Keppra] 250 mg PO DAILY #30 tab Clopidogrel Bisulfate [Plavix] 75 mg PO DAILY #30 tab Physician Discharge Instructions: Patient was admitted to the hospital for for dysarthria, unsteady gait which he reports has been going on intermittently since December of this year with about 4-5 episodes lasting 1 to [address] head without contrast as well as CTA of the head and neck were negative for acute findings/large vessel occlusion or significant carotid stenosis. MRI of the brain without contrast performed which was negative for signs of CVA or other acute findings. Patient's dysarthria persisted, he was able to walk with physical therapy greater than 200 feet with use of walker, noted to have mildly unsteady gait without use of walker. accounting advisory services manager consult placed to help obtain walker for patient to use as needed. Discussed case with neurology who recommends initiation of aspirin, Plavix, statin as well as Keppra 250 mg daily for possible seizure disorder as well as outpatient follow-up in 1 week. New medications Keppra 250 mg by mouth daily Clopidogrel 75 mg by mouth daily Atorvastatin 40 mg by mouth daily Continue your other home medications Take precautions to avoid falls Diet: ADA Activity: Fall precautions Followup: Pio Hernandez MD [ASSOCIATE-ACTIVE - CAN ADMIT] - 1 Week Angelina Herman DO, DO [Primary Care Provider] - 1-2 Weeks Time spent managing pt's care (in minutes): 35
[2023-03-12] MEDS ORDERED: gemfibroziL 600 MG TAB PO SCH (21:00)
[2023-03-13] MEDS ORDERED: PANTOPRAZOLE 40MG TABLET PO SCH (09:00)
[2023-03-13] MEDS ORDERED: ASPIRIN EC 81 MG TAB PO SCH (09:00)
[2023-03-13] MEDS ORDERED: METOPROLOL XL 50 MG TAB PO SCH (09:00)
[2023-03-13] MEDS ORDERED: lisinopriL 20 MG TAB PO SCH (09:00)
--- NOTE | 2023-03-16 17:01 | EKG ---
Test Date: 2023-03-11 Test Time: 14:04:22 Lead Level Designer: TL MEASUREMENT RESULTS: Intervals: Rate: 114 SC: 158 QRSD: 106 QT: 332 QTc: 457 [place]: P: SC: 158 QRS: -50 T: -12 INTERPRETIVE STATEMENTS: Sinus tachycardia with frequent premature ventricular complexes and fusion complexes Left axis deviation Septal infarct, age undetermined T wave abnormality, consider inferior ischemia Abnormal ECG Compared to ECG 01/19/2023 07:55:18 Fusion complex(es) now present Ventricular premature complex(es) now present Myocardial infarct finding now present T-wave abnormality now present Possible ischemia now present Atrial flutter no longer present ST (T wave) deviation no longer present Electronically Signed On 03-16-23 16:54:21 CUSTOMER CARE COORDINATOR by Troy Wei
== END 2023-03-12 15:19 | disposition home or self-care (01) ==
LOC: ER 12:43 → ERHOLD 16:28 → MERGE 16:28 → 2ND 17:22
PROVIDERS: ADMIT Hospitalist; ATTEND Hospitalist
DX: R47.1 Dysarthria and anarthria (principal); R26.81 Unsteadiness on feet; R47.81 Slurred speech; E87.1 Hypo-osmolality and hyponatremia; E83.42 Hypomagnesemia; I10 Essential (primary) hypertension; E78.5 Hyperlipidemia, unspecified; K21.9 Gastro-esophageal reflux disease without esophagitis; E11.65 Type 2 diabetes mellitus with hyperglycemia; I48.91 Unspecified atrial fibrillation; Z79.82 Long term (current) use of aspirin; Z91.81 History of falling
CPT/HCPCS: 93005; 85025 ×2; 80048; 36415; 83735 ×2; 84100 ×2; 85610; 84300; 82565; 82947 ×5; 85730; 84443; 84484; 84439; 82607; 80053; 82306; 80307; 83930; 83935; 70496; 70498; 70450; 71045; 70551; 97116; 97161; 97530; 96374; 99285; Q9967; J1815 ×2; J3475 ×2; J1650 ×2; J7040; G0378 ×3